=== PATIENT | male | born 1990 | race Caucasian/White ===

== ENCOUNTER → 2019-04-24 07:57 | Outpatient (CLI) | payer OTHER, SELFPAY ==
--- NOTE | 2019-04-24 | DI.MRI.S_ITS ---
PROCEDURE: MR THORACIC SPINE WO CON INDICATIONS: LOWER BACK PAIN TECHNIQUE: Noncontrast sagittal T1 spine echo and T2 fast spin echo, sagittal STIR, axial T1 and T2 fast spin echo through the thoracic spine. COMPARISON: None. FINDINGS: Image quality: Excellent. Alignment and Curvature: There is normal bony alignment. Bone Marrow: Marrow is of normal overall signal. No acute vertebral body compression fractures. There is mild degenerative disc disease along the middle third of the thoracic spine as indicated by slight disc height reduction and disc desiccation. No appreciable disc bulge or herniation is found. No nerve root impingement is seen. Spinal Cord: Visualized spinal cord is normal in size and signal. Paraspinous Soft Tissues: No paravertebral masses. Miscellaneous: On axial images, central canal and foramina appear widely patent at all scanned levels. IMPRESSION: No source of pain is found. Chronic mild degenerative disc disease without spinal or foraminal stenosis or nerve root impingement. Dictated by: Kodi Srivastava M.D. on 04/26/2019 at 8:25 Approved by: Kodi Srivastava M.D. on 04/26/2019 at 8:28
--- NOTE | 2019-04-24 | DI.MRI.S_ITS ---
PROCEDURE: MR LUMBAR SPINE WO CON INDICATIONS: LOWER BACK PAIN TECHNIQUE: Noncontrast sagittal T1 spin echo and T2 fast echo, sagittal STIR, axial T1 and T2 fast spin echo through the lumbar spine. In cases with scoliosis, additional coronal T2 fast spin echo may be performed. COMPARISON: None. FINDINGS: Image quality: Excellent. Alignment and Curvature: There is normal bony alignment. Bone Marrow: Marrow is of normal overall signal. No acute vertebral body compression fractures. Spinal Cord: Conus medullaris terminates at the L1 L1 level. Visualized cord demonstrates normal signal and size. Paraspinous Soft Tissues: No paravertebral masses. L1-L2: Normal appearance. L2-L3: Normal appearance. L3-L4: Normal appearance. L4-L5: Normal appearance except for very slight disc desiccation and a minimal posterior disc bulge without spinal or foraminal stenosis. L5-S1: There is a mild degree of degenerative disc at reduction and desiccation, and a minimal posterior disc bulge. Facet osteoarthritis is present at this level but only mild in severity without significant spinal or foraminal stenosis.. IMPRESSION: No trauma found, no nerve root impingement seen. Minimal L4-5 and very mild L5-S1 degenerative disc disease with facet osteoarthritis mild at L5-S1 but not associated with significant spinal or foraminal stenosis. Dictated by: Kodi Srivastava M.D. on 04/26/2019 at 8:28 Approved by: Kodi Srivastava M.D. on 04/26/2019 at 8:31
--- NOTE | 2019-04-24 | DI.MRI.S_ITS ---
PROCEDURE: MR CERVICAL SPINE WO CON INDICATIONS: LOWER BACK PAIN TECHNIQUE: Noncontrast sagittal T1 spin echo and T2 fast spin echo, sagittal STIR, foraminal oblique sagittal T2 fast spin echo, and axial gradient echo or T2 fast spin echo through the cervical spine. COMPARISON: None. FINDINGS: Image quality: Excellent. Alignment and Curvature: There is normal bony alignment. Bone Marrow: Marrow demonstrates normal overall signal. Spinal Cord: Visualized spinal cord has normal size and signal. No cerebellar tonsillar herniation. Paraspinous Soft Tissues: No paravertebral masses. Prevertebral soft tissues are normal in thickness. C2-C3: Normal appearance. C3-C4: Normal appearance. C4-C5: Normal appearance except for a mild right-sided posterior disc bulge effacing CSF to a mild degree from the anterior right thecal sac area. C5-C6: Normal appearance except also there is a mild degenerative disc disease pattern with a mild right-sided posterior disc bulge effacing CSF from the right anterior thecal sac to a mild degree. C6-C7: Normal appearance. C7-T1: Normal appearance. IMPRESSION: No disc herniation or profound, no area of significant spinal or foraminal stenosis. At the right anterior margin of the thecal sac at C4-5 and C5-6 there is a posterior disc bulge mildly effacing CSF from the right anterior thecal sac at these 2 levels but not clearly impinging on the adjacent nerve roots. Dictated by: Kodi Srivastava M.D. on 04/26/2019 at 8:22 Approved by: Kodi Srivastava M.D. on 04/26/2019 at 8:25
== END ==
PROVIDERS: PCP Physician Assistant; Visit Provider Physician Assistant
DX: M54.5 Low back pain (principal); M50.221 Other cervical disc displacement at C4-C5 level; M51.34 Other intervertebral disc degeneration, thoracic region; M51.37 Other intervertebral disc degeneration, lumbosacral region; M47.817 Spondylosis without myelopathy or radiculopathy, lumbosacral region
CPT/HCPCS: 72141; 72146; 72148